=== PATIENT | male | born 1960 | race Caucasian/White ===

== ENCOUNTER 2017-06-11 07:14 | Emergency (ER) | payer SELFPAY ==
[~2017-06-11] VITALS: Ht 172.7 cm; Wt 77.0 kg
[2017-06-11] MEDS ORDERED: KETOROLAC 30MG/ML VIAL IV ONE (09:00)
[2017-06-11 10:36] VITALS: BP 116/82
== END 2017-06-11 10:45 | disposition home or self-care (01) ==
LOC: ER 07:53
DX: R07.81 Pleurodynia (principal)
CPT/HCPCS: 71010; 93005; 96374; 99284; J1885